=== PATIENT | male | born 1950 | race Asian ===

== ENCOUNTER 2019-02-12 15:19 | Emergency (ER) | payer MEDICARE ==
[~2019-02-12] VITALS: Ht 162.6 cm; Wt 68.0 kg
[2019-02-12 15:30] VITALS: BP 174/87
[2019-02-12] MEDS ORDERED: MUPI22OI2 TP (15:50)
[2019-02-12] MEDS ORDERED: GABA300C18 PO (15:50)
[2019-02-12] MEDS ORDERED: CEPH500T PO (15:50)
[2019-02-12] MEDS ORDERED: TRIA15OI TP (15:50)
[2019-02-12] MEDS ORDERED: TRAM-48 PO (15:50)
--- NOTE | 2019-02-12 15:50 | PHYS DOC ---
Adult General Chief Complaint Chief Complaint: SKIN PROBLEM HPI HPI Patient is a 68 year old male patient who presents to the ED today complaining of a pruritic rash on his neck and upper chest that her family reports has been coming on and off every month for 1-2 weeks for the last couple months. Family denies any known cause for this rash. They believe it could be eczema. They state the rash started draining today and hence the reason they came to have patient be seen. Patient is [place]-speaking but seems to be able to answer some questions in [place]. Family is doing most of the talking. Review of Systems Review of Systems Constitutional: Denies fever or chills [] Eyes: Denies change in visual acuity, redness, or eye pain [] HENT: Denies nasal congestion or sore throat [] Respiratory: Denies cough or shortness of breath [] Cardiovascular: No additional information not addressed in HPI [] GI: Denies abdominal pain, nausea, vomiting, bloody stools or diarrhea [] : Denies dysuria or hematuria [] Musculoskeletal: Denies back pain or joint pain [] Integument: Reports rash Neurologic: Denies headache, focal weakness or sensory changes [] All other systems were reviewed and found to be within normal limits, except as documented in this note. Physical Exam Physical Exam Constitutional: Well developed, well nourished, no acute distress, non-toxic appearance. [] HENT: Normocephalic, atraumatic, bilateral external ears normal, oropharynx moist, no oral exudates, nose normal. [] Eyes: PERRLA, EOMI, conjunctiva normal, no discharge. [] Neck: Normal range of motion, no tenderness, supple, no stridor. [] Cardiovascular:Heart rate regular rhythm, no murmur [] Lungs & Thorax: Bilateral breath sounds clear to auscultation [] Abdomen: Bowel sounds normal, soft, no tenderness, no masses, no pulsatile masses. [] Skin: Mild amount of erythematous rash on patient's neck bilaterally, both anterior and posterior aspect of the neck, similar rash noted on the chest bilaterally as well as upper back. No drainage noted but the rash appears infected Back: No tenderness, no CVA tenderness. [] Extremities: No tenderness, no cyanosis, no clubbing, ROM intact, no edema. [] Neurologic: Alert and oriented X 3, normal motor function, normal sensory function, no focal deficits noted. [] Psychologic: Affect normal, judgement normal, mood normal. [] EKG EKG [] Radiology/Procedures Radiology/Procedures [] Course & Med Decision Making Course & Med Decision Making Pertinent Labs and Imaging studies reviewed. (See chart for details) This is a 68-year-old male patient presenting to the ED today with a rash that has been coming every one to 2 weeks for the last couple months. Currently the rash appears infected. Tetanus is up-to-date. Patient was given prescription for cephalexin, Bactroban ointment and triamcinolone. Follow-up with electrician constructor supervisor recommended because this rash appears to have been going on for a while per patient and family report. Dragon Disclaimer Dragon Disclaimer This electronic medical record was generated, in whole or in part, using a voice recognition dictation system. Departure Departure Impression: Primary Impression: Skin infection Additional Impression: Contact dermatitis Disposition: 01 HOME, SELF-CARE Condition: STABLE Referrals: RAYO CROSS MD (PCP) DOM FRENCH MD follow up in 2 weeks Patient Instructions: Contact Dermatitis, Aqce-et-[id number], Skin Infections Additional Instructions: You were seen in the Ed for a rash. Please follow-up with the electrician constructor supervisor considering the rash has been present for a couple months. Use the prescribed medicines as ordered Scripts Gabapentin (GABAPENTIN ) 300 Mg Capsule 300 MG PO TID for NEUROGENIC PAIN, #30 CAP Prov: JOSÉ MEDELLIN APRN 02/12/19 Tramadol Hcl (ULTRAM) 50 Mg Tablet 50 MG PO Q6HRS PRN for PAIN, #30 TAB 0 Refills Prov: JOSÉ MEDELLIN APRN 02/12/19 Mupirocin (MUPIROCIN OINTMENT) 22 Gm Oint...g. 1 VINICIO TP TID for WOUND CARE, #1 TUBE Prov: JOSÉ MEDELLIN APRN 02/12/19 Triamcinolone Acetonide (TRIAMCINOLONE ACETONIDE 0.1% OINT) 15 Gm Oint...g. 1 VINICIO TP BID for WOUND CARE, #1 TUBE Prov: JOSÉ MEDELLIN APRN 02/12/19 Cephalexin (CEPHALEXIN) 500 Mg Tablet 1 TAB PO TID, #30 TAB Prov: JOSÉ MEDELLIN APRN 02/12/19 Problem Qualifiers Additional Impression: Contact dermatitis Contact dermatitis type: unspecified Contact dermatitis trigger: unspecified trigger Qualified Codes: L25.9 - Unspecified contact dermatitis, unspecified cause JOSÉ MEDELLIN APRN Feb 12, 2019 15:50
== END 2019-02-12 16:01 | disposition home or self-care (01) ==
LOC: ER 15:19
DX: L25.9 Unspecified contact dermatitis, unspecified cause (principal); L08.9 Local infection of the skin and subcutaneous tissue, unspecified
CPT/HCPCS: 99283